=== PATIENT | female | born 1990 | race African-American/Black ===

== ENCOUNTER 2021-11-23 00:56 | Emergency (ER) | payer BC ==
[2021-11-23] MEDS ORDERED: Ketorolac 30 MG/ML SDV IM ONE (00:59)
[2021-11-23] MEDS ORDERED: Ondansetron 4 MG Tab.DIS PO ONE (01:11)
[2021-11-23 01:50] LABS: CORONAVIRUS COVID-19 NAA POSITIVE (NEGATIVE); INFLUENZA A NAA NEGATIVE (NEGATIVE); INFLUENZA B NAA NEGATIVE (NEGATIVE)
== END 2021-11-23 02:20 | disposition home or self-care (01) ==
LOC: MW.ED 00:56
DX: U07.1 COVID-19 (principal)
CPT/HCPCS: 0240U; 93005; 96372; 99284; A9270; J1885